=== PATIENT | female | born 1945 | race Two or more races ===

== ENCOUNTER 2017-06-02 14:43 | Emergency (ER) | payer OTHER ==
[2017-06-02 14:52] VITALS: BP 140/67; PULSE 74; TEMP 98.3; BMI 24.5
--- NOTE | 2017-06-02 16:47 | PDOC ---
History of Present Illness - General Chief Complaint: Injury Stated Complaint: SWELLING RT HAND Time Seen by Provider: 06/02/17 15:37 History Source: Patient Exam Limitations: No Limitations - History of Present Illness Initial Comments: 06/02/17 17:22 71 yr female with swelling and pain left middle finger after it got caught in minivan sliding door 2 days ago. Pt denies numbness or tingling. Severity: reports: mild Past History - Past Medical History Allergies/Adverse Reactions: Allergies Allergy/AdvReac Type Severity Reaction Status Date / Time No Known Allergies Allergy Verified 06/02/17 14:48 Home Medications: Ambulatory Orders Inhaler, Assist Devices [Asthma Control] 1 each MC BID #1 spacer 02/09/14 Amlodipine Besylate 5 mg PO ASDIR 06/02/17 Asthma: Yes HTN: Yes Thyroid Disease: Yes - Surgical History Cholecystectomy: Yes - Suicide/Smoking/Psychosocial Hx Smoking Status: No Smoking History: Never smoked Have you smoked in the past 12 months: No Number of Cigarettes Smoked Daily: 0 Information on smoking cessation initiated: No Hx Alcohol Use: No Drug/Substance Use Hx: No Substance Use Type: None Review of Systems - Review of Systems Able to Perform ROS?: Yes Is the patient limited Lao proficient: No Constitutional: No: Symptoms Reported HEENTM: No: Symptoms Reported Respiratory: No: Symptoms reported Cardiac (ROS): No: Symptoms Reported ABD/GI: No: Symptoms Reported Musculoskeletal: Yes: Symptoms Reported Integumentary: No: Symptoms Reported *Physical Exam - Vital Signs Last Vital Signs Temp Pulse Resp BP Pulse Ox 98.3 F 74 18 140/67 100 06/02/17 14:49 06/02/17 14:49 06/02/17 14:49 06/02/17 14:49 06/02/17 14:49 - Physical Exam Comments: 06/02/17 17:32 General Appearance: Yes: Nourished HEENT: positive: EOMI, JAMILA Respiratory/Chest: positive: Lungs Clear, Normal Breath Sounds Cardiovascular: positive: Regular Rhythm, Regular Rate Gastrointestinal/Abdominal: positive: Normal Bowel Sounds, Soft Musculoskeletal: positive: Normal Inspection Extremity: positive: Normal Capillary Refill, Swelling (over the dorsal aspect of the third digit at base of hand) Procedures - Splinting Splint Location: Left: Finger (middle digit left hand ) Pre-Proc Neuro Vasc Exam: normal Hand-Made Type: orthoglass Splint Type: Yes: Finger Vincenzo Bandage: yes ED Treatment Course - RADIOLOGY Radiology Studies Ordered: Category Date Time Status HAND- LEFT [RAD] Stat Radiology 06/02/17 15:42 Completed Medical Decision Making - Medical Decision Making 06/02/17 16:45 cc: finger injury crush 2 days ago in car door will xray to r/o fracture pt has FROM of the digits xray to r/o fracture 06/02/17 17:36 *DC/Admit/Observation/Transfer Diagnosis at time of Disposition: Fracture, finger Qualifiers: Encounter type: initial encounter Finger: middle finger Fracture type: closed Phalanx: proximal Fracture alignment: displaced Laterality: left Qualified Code( s): S62.613A - Displaced fracture of proximal phalanx of left middle finger, initial encounter for closed fracture - Discharge Dispostion Disposition: HOME Condition at time of disposition: Improved - Referrals Referrals: Trell Adam MD [Staff Physician] - - Patient Instructions Additional Instructions: call on Monday to make appointment for follow up you must follow with the orthopedist next week keep the slint on at all times do not remove or get wet take advil for pain 600mg every 6hrs return to ER for any worsening symptoms or pain - Post Discharge Activity
== END 2017-06-02 17:21 | disposition home or self-care (01) ==
LOC: JERFT 14:43
PROC: 2W3KX1Z Immobilization of Left Finger using Splint (ICD-10-PCS; principal; 2017-06-02)
DX: S62.613A Displaced fracture of proximal phalanx of left middle finger, initial encounter for closed fracture (principal); V58.4XXA Person boarding or alighting a pick-up truck or van injured in noncollision transport accident, initial encounter; Y92.488 Other paved roadways as the place of occurrence of the external cause; Y93.89 Activity, other specified; I10 Essential (primary) hypertension; J45.909 Unspecified asthma, uncomplicated; E07.9 Disorder of thyroid, unspecified
CPT/HCPCS: 73130-TC-LT; 99281-25

== ENCOUNTER 2017-06-12 16:09 | Emergency (ER) | payer OTHER ==
[2017-06-12 16:23] VITALS: BP 119/67; PULSE 60; TEMP 98.3; BMI 25.3
== END 2017-06-12 17:13 | disposition left against medical advice (07) ==
LOC: JERFT 16:09
DX: Z53.21 Procedure and treatment not carried out due to patient leaving prior to being seen by health care provider (principal)
CPT/HCPCS: 99281-25

== ENCOUNTER 2022-06-07 09:31 | Inpatient (IN) | payer OTHER ==
[2022-06-07] MEDS ORDERED: SODIUM CHLORIDE 1,987 ML IV ONE (11:31)
[2022-06-07] MEDS ORDERED: ACETAMINOPHEN 1000 MG/100 ML BAG IVPB ONE (11:35)
[2022-06-07] MEDS ORDERED: CEFTRIAXONE 1 GM in DEXTROSE 5%-WATER - 100 ML IVPB ONE (11:36)
[2022-06-07] MEDS ORDERED: CEFTRIAXONE 1 GM/50 ML BAG ONE (12:09)
[2022-06-07] MEDS ORDERED: ACETAMINOPHEN INJECTION 100 ML IVPB ONE (12:09)
[2022-06-07 12:25] LABS: BASO % 0.6 % (0-2.0); HEMATOCRIT 42.8 % (32.4-45.2); LYMPH % 10.3 % (8-40); MCH 27.9 pg (25.7-33.7); MCHC 32.7 g/dl (32.0-36.0); MEAN CELL VOLUME 85.3 fl (80-96); MEAN PLT VOLUME 7.2 fl (7.5-11.1); MONO % 7.8 % (3.8-10.2); NEUT % 81.3 % (42.8-82.8); PLATELET COUNT 241 10^3/uL (134-434); RBC 5.02 M/mm3 (3.60-5.2); VENOUS BASE EXCESS 0.4 mmol/L (-2-2); VENOUS O2 SATURATION 37.6 % (70-80); VENOUS PCO2 39.7 mmHg (38-52); VENOUS PH 7.415 (7.310-7.410); WHITE BLOOD COUNT 12.9 K/mm3 (4.0-10.0)
[2022-06-07 12:31] LABS: INR 1.34 (0.83-1.09); PROTHROMBIN TIME (PATIENT) 15.4 SEC (9.7-13.0)
[2022-06-07 12:34] LABS: ACTIVATED PTT 24.8 SECONDS (25.2-36.5)
[2022-06-07 12:45] LABS: ALBUMIN 3.5 g/dl (3.4-5.0); BLOOD UREA NITROGEN 17.2 mg/dL (7-18); CALCIUM 8.5 mg/dL (8.5-10.1)
[2022-06-07 12:50] LABS: TOT PROT 7.8 g/dl (6.4-8.2)
[2022-06-07 13:22] LABS: EPI CELLS 4 /uL (0-25.1); HYALINE CASTS 0 /uL (0-3.1); PH,URINE 7.5 (5.0-8.0); URINE APPEARANCE CLEAR; URINE BACTERIA 2 /uL (0-1359); URINE BILIRUBIN NEGATIVE (NEGATIVE); URINE COLOR YELLOW; URINE GLUCOSE (UA) NEGATIVE (NEGATIVE); URINE KETONE NEGATIVE (NEGATIVE); URINE LEUK ESTERASE NEGATIVE (NEGATIVE); URINE NITRITE NEGATIVE (NEGATIVE); URINE PROTEIN 1+ (NEGATIVE); URINE RBC 36 /uL (0-23.9); URINE UROBILINOGEN 0.2 mg/dL (0.2-1.0); URINE WBC 2 /uL (0-25.8)
[2022-06-07] MEDS ORDERED: AZITHROMYCIN IVPB 500 MG in DEXTROSE 5%-WATER - 250 ML IVPB SCH (14:45)
[2022-06-07] MEDS: SODIUM CHLORIDE 1,000 ML IV SCH (18:45)
[2022-06-07 19:41] VITALS: BMI 24.7
[2022-06-07 21:21] LABS: N-TERMINAL BNP 2061.98 pg/ml (5-450)
[2022-06-07] MEDS: ACETAMINOPHEN 1000 MG/100 ML BAG IVPB PRN (23:29)
[2022-06-08] MEDS: ACETAMINOPHEN 1000 MG/100 ML BAG IVPB PRN (09:16)
[2022-06-08] MEDS ORDERED: PANTOPRAZOLE 40 MG TABLET PO SCH (10:00)
[2022-06-08] MEDS ORDERED: ENOXAPARIN NA (PORCINE) 40 MG/0.4 ML DISP.SYRIN SQ SCH (10:00)
[2022-06-08] MEDS ORDERED: CEFTRIAXONE 1 GM in DEXTROSE 5%-WATER - 50 ML IVPB SCH (10:00)
[2022-06-08 10:04] LABS: BASO % 0.3 % (0-2.0); EOS % 0.2 % (0-4.5); HEMOGLOBIN 13.5 GM/dL (10.7-15.3); LYMPH % 11.3 % (8-40); MCH 28.7 pg (25.7-33.7); MCHC 33.7 g/dl (32.0-36.0); MEAN CELL VOLUME 85.1 fl (80-96); MEAN PLT VOLUME 7.1 fl (7.5-11.1); MONO % 4.5 % (3.8-10.2); NEUT % 83.7 % (42.8-82.8); PLATELET COUNT 201 10^3/uL (134-434); WHITE BLOOD COUNT 13.5 K/mm3 (4.0-10.0)
[2022-06-08 10:28] LABS: BLOOD UREA NITROGEN 15.9 mg/dL (7-18); CALCIUM 7.8 mg/dL (8.5-10.1); MAGNESIUM 1.8 mg/dL (1.8-2.4)
[2022-06-08] MEDS ORDERED: AZITHROMYCIN IVPB 500 MG/250 ML BAG IVPB SCH (10:30)
[2022-06-08 10:31] LABS: CREATININE 0.9 mg/dL (0.55-1.3); PHOSPHOROUS 2.2 mg/dL (2.5-4.9)
[2022-06-08 10:33] LABS: TOT PROT 6.8 g/dl (6.4-8.2)
[2022-06-08] MEDS ORDERED: POTASSIUM CHLORIDE ORAL LIQUID 20 MEQ/15 ML PO ONE (14:50)
[2022-06-08] MEDS: SODIUM CHLORIDE 1,000 ML IV SCH (15:33)
[2022-06-08] MEDS: KCL 10 MEQ IVPB 10 MEQ/100 ML INFUS.BAG IVPB SCH ×3 (15:33→20:20)
[2022-06-08] MEDS ORDERED: MAGNESIUM SULF 50% (8.12 MEQ/2 ML-1 GM VIAL) IVPB ONE (15:40)
[2022-06-08] MEDS: NAPH,MB-DB/K PH,MBDB POWDER PACKET PO SCH ×3 (16:08→21:12)
[2022-06-08] MEDS: ASPIRIN COATED 81 MG TABLET.EC PO SCH (18:53)
[2022-06-09] MEDS: NAPH,MB-DB/K PH,MBDB POWDER PACKET PO SCH ×3 (06:33→21:56)
[2022-06-09] MEDS: LEVOTHYROXINE NA 112 MCG TABLET (FP) PO SCH (06:33)
[2022-06-09 07:33] LABS: HEMATOCRIT 36.7 % (32.4-45.2); HEMOGLOBIN 12.4 GM/dL (10.7-15.3); MCH 28.5 pg (25.7-33.7); MCHC 33.8 g/dl (32.0-36.0); MEAN CELL VOLUME 84.5 fl (80-96); MEAN PLT VOLUME 7.1 fl (7.5-11.1); PLATELET COUNT 187 10^3/uL (134-434); RBC 4.34 M/mm3 (3.60-5.2); RDW 15.1 % (11.6-15.6); WHITE BLOOD COUNT 12.5 K/mm3 (4.0-10.0)
[2022-06-09 07:59] LABS: ALBUMIN 2.6 g/dl (3.4-5.0); BLOOD UREA NITROGEN 12.7 mg/dL (7-18); CALCIUM 7.8 mg/dL (8.5-10.1); MAGNESIUM 2.1 mg/dL (1.8-2.4)
[2022-06-09 08:02] LABS: CREATININE 0.6 mg/dL (0.55-1.3)
[2022-06-09 08:04] LABS: BILIRUBIN,TOTAL 0.8 mg/dL (0.2-1)
[2022-06-09 08:05] LABS: TOT PROT 6.2 g/dl (6.4-8.2)
[2022-06-09] MEDS: ASPIRIN COATED 81 MG TABLET.EC PO SCH (09:35)
[2022-06-09] MEDS: AZITHROMYCIN IVPB 500 MG/250 ML BAG IVPB SCH (09:35)
[2022-06-09] MEDS: PANTOPRAZOLE 40 MG TABLET PO SCH (09:35)
[2022-06-09] MEDS: CEFTRIAXONE 1 GM in DEXTROSE 5%-WATER - 50 ML IVPB SCH (09:36)
[2022-06-09] MEDS: ALBUTEROL SO4 2.5/IPRATROPIUM 0.5 INH SOL 3 ML VIAL.NEB. NEB SCH ×3 (11:30→20:11)
[2022-06-09] MEDS: methylPREDNISolone NA SUCC 40 MG/1 ML VIAL IVPUSH SCH ×2 (12:29→18:19)
[2022-06-09] MEDS: ENOXAPARIN NA (PORCINE) 40 MG/0.4 ML DISP.SYRIN SQ SCH (12:58)
[2022-06-10] MEDS: methylPREDNISolone NA SUCC 40 MG/1 ML VIAL IVPUSH SCH ×3 (01:15→18:14)
[2022-06-10] MEDS: LEVOTHYROXINE NA 112 MCG TABLET (FP) PO SCH (06:02)
[2022-06-10] MEDS: NAPH,MB-DB/K PH,MBDB POWDER PACKET PO SCH ×3 (06:03→21:59)
[2022-06-10] MEDS: ALBUTEROL SO4 2.5/IPRATROPIUM 0.5 INH SOL 3 ML VIAL.NEB. NEB SCH ×4 (07:51→21:00)
[2022-06-10 07:59] LABS: BASO % 0.3 % (0-2.0); HEMATOCRIT 38.9 % (32.4-45.2); HEMOGLOBIN 13.3 GM/dL (10.7-15.3); LYMPH % 10.3 % (8-40); MCH 28.8 pg (25.7-33.7); MCHC 34.1 g/dl (32.0-36.0); MEAN CELL VOLUME 84.3 fl (80-96); MEAN PLT VOLUME 7.2 fl (7.5-11.1); MONO % 3.8 % (3.8-10.2); NEUT % 85.6 % (42.8-82.8); PLATELET COUNT 242 10^3/uL (134-434); RBC 4.62 M/mm3 (3.60-5.2); RDW 14.9 % (11.6-15.6); WHITE BLOOD COUNT 10.2 K/mm3 (4.0-10.0)
[2022-06-10 08:39] LABS: ALBUMIN 2.8 g/dl (3.4-5.0); BLOOD UREA NITROGEN 18.1 mg/dL (7-18); MAGNESIUM 2.5 mg/dL (1.8-2.4)
[2022-06-10 08:42] LABS: CREATININE 0.6 mg/dL (0.55-1.3); PHOSPHOROUS 5.3 mg/dL (2.5-4.9)
[2022-06-10 08:44] LABS: BILIRUBIN,TOTAL 0.5 mg/dL (0.2-1); TOT PROT 6.9 g/dl (6.4-8.2)
[2022-06-10] MEDS: CEFTRIAXONE 1 GM in DEXTROSE 5%-WATER - 50 ML IVPB SCH (09:45)
[2022-06-10] MEDS: PANTOPRAZOLE 40 MG TABLET PO SCH (09:46)
[2022-06-10] MEDS: ENOXAPARIN NA (PORCINE) 40 MG/0.4 ML DISP.SYRIN SQ SCH (09:46)
[2022-06-10] MEDS: ASPIRIN COATED 81 MG TABLET.EC PO SCH (09:46)
[2022-06-10] MEDS: AZITHROMYCIN IVPB 500 MG/250 ML BAG IVPB SCH (09:47)
[2022-06-10] MEDS ORDERED: ACETAMINOPHEN 1000 MG/100 ML BAG IVPB PRN (15:16)
[2022-06-11] MEDS: methylPREDNISolone NA SUCC 40 MG/1 ML VIAL IVPUSH SCH ×3 (02:15→17:14)
[2022-06-11] MEDS: LEVOTHYROXINE NA 112 MCG TABLET (FP) PO SCH (06:33)
[2022-06-11] MEDS: NAPH,MB-DB/K PH,MBDB POWDER PACKET PO SCH ×2 (06:33→15:10)
[2022-06-11] MEDS: ALBUTEROL SO4 2.5/IPRATROPIUM 0.5 INH SOL 3 ML VIAL.NEB. NEB SCH ×4 (08:10→19:56)
[2022-06-11 08:36] LABS: HEMATOCRIT 38.1 % (32.4-45.2); HEMOGLOBIN 12.5 GM/dL (10.7-15.3); MCH 27.7 pg (25.7-33.7); MCHC 32.7 g/dl (32.0-36.0); MEAN CELL VOLUME 84.5 fl (80-96); MEAN PLT VOLUME 7.3 fl (7.5-11.1); PLATELET COUNT 313 10^3/uL (134-434); RDW 15.1 % (11.6-15.6); WHITE BLOOD COUNT 15.4 K/mm3 (4.0-10.0)
[2022-06-11 08:45] LABS: CALCIUM 7.9 mg/dL (8.5-10.1)
[2022-06-11 08:46] LABS: ALBUMIN 2.8 g/dl (3.4-5.0); BLOOD UREA NITROGEN 22.6 mg/dL (7-18)
[2022-06-11 08:47] LABS: CREATININE 0.8 mg/dL (0.55-1.3)
[2022-06-11 08:49] LABS: BILIRUBIN,TOTAL 0.4 mg/dL (0.2-1); TOT PROT 6.7 g/dl (6.4-8.2)
[2022-06-11 09:56] LABS: ANISOCYTOSIS 0; MACROCYTOSIS 0; PLATELET ESTIMATE NORMAL
[2022-06-11] MEDS: PANTOPRAZOLE 40 MG TABLET PO SCH (10:08)
[2022-06-11] MEDS: ASPIRIN COATED 81 MG TABLET.EC PO SCH (10:09)
[2022-06-11] MEDS: CEFTRIAXONE 1 GM in DEXTROSE 5%-WATER - 50 ML IVPB SCH (10:09)
[2022-06-11] MEDS: ENOXAPARIN NA (PORCINE) 40 MG/0.4 ML DISP.SYRIN SQ SCH (10:09)
[2022-06-11] MEDS: AZITHROMYCIN IVPB 500 MG/250 ML BAG IVPB SCH (11:17)
[2022-06-12] MEDS: methylPREDNISolone NA SUCC 40 MG/1 ML VIAL IVPUSH SCH ×3 (01:18→17:04)
[2022-06-12] MEDS: LEVOTHYROXINE NA 112 MCG TABLET (FP) PO SCH (06:03)
[2022-06-12 07:20] LABS: BASO % 0.5 % (0-2.0); HEMATOCRIT 38.4 % (32.4-45.2); HEMOGLOBIN 12.5 GM/dL (10.7-15.3); LYMPH % 10.6 % (8-40); MCH 27.5 pg (25.7-33.7); MCHC 32.5 g/dl (32.0-36.0); MEAN CELL VOLUME 84.4 fl (80-96); MEAN PLT VOLUME 7.2 fl (7.5-11.1); MONO % 6.1 % (3.8-10.2); NEUT % 82.8 % (42.8-82.8); PLATELET COUNT 326 10^3/uL (134-434); RBC 4.54 M/mm3 (3.60-5.2); WHITE BLOOD COUNT 13.5 K/mm3 (4.0-10.0)
[2022-06-12 07:44] LABS: CALCIUM 7.5 mg/dL (8.5-10.1)
[2022-06-12 07:45] LABS: ALBUMIN 2.5 g/dl (3.4-5.0); BLOOD UREA NITROGEN 29.8 mg/dL (7-18)
[2022-06-12 07:48] LABS: CREATININE 0.7 mg/dL (0.55-1.3); PHOSPHOROUS 3.7 mg/dL (2.5-4.9)
[2022-06-12 07:49] LABS: BILIRUBIN,TOTAL 0.4 mg/dL (0.2-1)
[2022-06-12] MEDS: ALBUTEROL SO4 2.5/IPRATROPIUM 0.5 INH SOL 3 ML VIAL.NEB. NEB SCH ×4 (08:51→20:42)
[2022-06-12] MEDS: CEFTRIAXONE 1 GM in DEXTROSE 5%-WATER - 50 ML IVPB SCH (09:01)
[2022-06-12] MEDS: AZITHROMYCIN IVPB 500 MG/250 ML BAG IVPB SCH (09:04)
[2022-06-12] MEDS: PANTOPRAZOLE 40 MG TABLET PO SCH (09:13)
[2022-06-12] MEDS: ASPIRIN COATED 81 MG TABLET.EC PO SCH (09:13)
[2022-06-12] MEDS: ENOXAPARIN NA (PORCINE) 40 MG/0.4 ML DISP.SYRIN SQ SCH (09:13)
[2022-06-12 09:14] LABS: ANISOCYTOSIS 1+; MACROCYTOSIS 0
[2022-06-13] MEDS: methylPREDNISolone NA SUCC 40 MG/1 ML VIAL IVPUSH SCH ×3 (03:08→17:42)
[2022-06-13] MEDS: LEVOTHYROXINE NA 112 MCG TABLET (FP) PO SCH (06:41)
[2022-06-13 07:36] LABS: HEMATOCRIT 38.6 % (32.4-45.2); HEMOGLOBIN 12.7 GM/dL (10.7-15.3); MCH 27.9 pg (25.7-33.7); MEAN CELL VOLUME 84.5 fl (80-96); PLATELET COUNT 337 10^3/uL (134-434); RBC 4.56 M/mm3 (3.60-5.2); RDW 15.3 % (11.6-15.6); WHITE BLOOD COUNT 15.1 K/mm3 (4.0-10.0)
[2022-06-13 08:03] LABS: ALBUMIN 2.5 g/dl (3.4-5.0); BLOOD UREA NITROGEN 29.2 mg/dL (7-18); CALCIUM 7.4 mg/dL (8.5-10.1)
[2022-06-13 08:06] LABS: CREATININE 0.7 mg/dL (0.55-1.3)
[2022-06-13 08:08] LABS: BILIRUBIN,TOTAL 0.4 mg/dL (0.2-1); TOT PROT 5.8 g/dl (6.4-8.2)
[2022-06-13 09:06] LABS: ANISOCYTOSIS 0; HELMET CELLS 0; HOWELL-JOLLY BODIES 0; MACROCYTOSIS 0; OVALOCYTE 0; ROULEAU 0; SICKELED CELLS 0; TARGET CELLS 0; TEAR DROP CELLS 0; TOXIC GRANULATION 0
[2022-06-13] MEDS: CEFTRIAXONE 1 GM in DEXTROSE 5%-WATER - 50 ML IVPB SCH (09:34)
[2022-06-13] MEDS: AZITHROMYCIN IVPB 500 MG/250 ML BAG IVPB SCH (09:34)
[2022-06-13] MEDS: ASPIRIN COATED 81 MG TABLET.EC PO SCH (09:35)
[2022-06-13] MEDS: ENOXAPARIN NA (PORCINE) 40 MG/0.4 ML DISP.SYRIN SQ SCH (09:35)
[2022-06-13] MEDS: ALBUTEROL SO4 2.5/IPRATROPIUM 0.5 INH SOL 3 ML VIAL.NEB. NEB SCH ×4 (09:35→20:33)
[2022-06-13] MEDS: PANTOPRAZOLE 40 MG TABLET PO SCH (09:35)
[2022-06-13] MEDS ORDERED: REGADENOSON 0.4 MG/5 ML PRE-FILLED SYRINGE IVPUSH ONE ×2 (09:54→10:30)
[2022-06-13 18:29] VITALS: RESP 18
[2022-06-14] MEDS: methylPREDNISolone NA SUCC 40 MG/1 ML VIAL IVPUSH SCH ×2 (02:49→10:45)
[2022-06-14] MEDS: LEVOTHYROXINE NA 112 MCG TABLET (FP) PO SCH (06:03)
[2022-06-14 07:29] LABS: HEMATOCRIT 38.1 % (32.4-45.2); HEMOGLOBIN 12.8 GM/dL (10.7-15.3); MCH 28.4 pg (25.7-33.7); MCHC 33.5 g/dl (32.0-36.0); MEAN CELL VOLUME 84.9 fl (80-96); MEAN PLT VOLUME 6.6 fl (7.5-11.1); PLATELET COUNT 382 10^3/uL (134-434); RBC 4.49 M/mm3 (3.60-5.2); RDW 15.4 % (11.6-15.6); WHITE BLOOD COUNT 14.9 K/mm3 (4.0-10.0)
[2022-06-14 07:49] LABS: ALBUMIN 2.6 g/dl (3.4-5.0)
[2022-06-14 07:50] LABS: CALCIUM 7.6 mg/dL (8.5-10.1)
[2022-06-14 07:51] LABS: BLOOD UREA NITROGEN 25.2 mg/dL (7-18); MAGNESIUM 2.3 mg/dL (1.8-2.4)
[2022-06-14 07:54] LABS: CREATININE 0.6 mg/dL (0.55-1.3); PHOSPHOROUS 3.7 mg/dL (2.5-4.9)
[2022-06-14 07:56] LABS: BILIRUBIN,TOTAL 0.3 mg/dL (0.2-1); TOT PROT 5.6 g/dl (6.4-8.2)
[2022-06-14] MEDS: ALBUTEROL SO4 2.5/IPRATROPIUM 0.5 INH SOL 3 ML VIAL.NEB. NEB SCH (07:59)
[2022-06-14] MEDS: CEFTRIAXONE 1 GM in DEXTROSE 5%-WATER - 50 ML IVPB SCH (10:43)
[2022-06-14] MEDS: ASPIRIN COATED 81 MG TABLET.EC PO SCH (10:45)
[2022-06-14] MEDS: ENOXAPARIN NA (PORCINE) 40 MG/0.4 ML DISP.SYRIN SQ SCH (10:45)
[2022-06-14] MEDS: PANTOPRAZOLE 40 MG TABLET PO SCH (10:45)
[2022-06-14] MEDS: AZITHROMYCIN IVPB 500 MG/250 ML BAG IVPB SCH (10:57)
[2022-06-14] MEDS ORDERED: methylPREDNISolone NA SUCC 40 MG/1 ML VIAL IVPUSH SCH (11:45)
[2022-06-14 14:58] VITALS: BP 135/76; PULSE 55; TEMP 97.6
[2022-06-14] MEDS ORDERED: CEFUROXIME AXETIL 500 MG TABLET PO SCH (22:00)
== END 2022-06-14 19:01 | disposition home or self-care (01) | DRG 871 ==
LOC: JER 09:31 → JERBED 15:25 → J6S 18:25 → J4W 06-08 15:05
PROVIDERS: ADMIT Internal Medicine; ATTEND Internal Medicine
DX: A41.9 Sepsis, unspecified organism (principal); J18.9 Pneumonia, unspecified organism; I24.8 Other forms of acute ischemic heart disease; I10 Essential (primary) hypertension; E05.90 Thyrotoxicosis, unspecified without thyrotoxic crisis or storm; J45.909 Unspecified asthma, uncomplicated; E03.9 Hypothyroidism, unspecified; K21.9 Gastro-esophageal reflux disease without esophagitis; E78.5 Hyperlipidemia, unspecified; J84.10 Pulmonary fibrosis, unspecified; R06.09 Other forms of dyspnea; D72.829 Elevated white blood cell count, unspecified; M48.00 Spinal stenosis, site unspecified; I27.20 Pulmonary hypertension, unspecified; F32.A Depression, unspecified; J20.9 Acute bronchitis, unspecified
CPT/HCPCS: 0241U-QW; 36415; 70450-TC; 71046-TC-FY; 71250-TC; 72125-TC; 72148-TC; 72170-TC-FY; 72220-TC-FY; 73521-TC-FY; 78452-TC; 80053; 80061; 81003; 82550; 82553; 82803; 83605; 83735; 83880; 84100; 84439; 84443; 84484; 85025; 85027; 85610; 85730; 86850; 86900; 86901; 87040; 87070; 87077; 87086; 87205; 87899; 93005; 93010; 93017; 93306-TC; 94640; 97116-GP; 97162-GP; 99285-25; A9502; J2785

== ENCOUNTER 2022-10-25 17:02 | Observation (INO) | payer OTHER ==
[2022-10-25] MEDS ORDERED: methylPREDNISolone NA SUCC 125 MG/2 ML VIAL IVPUSH ONE (18:00)
[2022-10-25] MEDS ORDERED: methylPREDNISolone NA SUCC 125 MG/2 ML VIAL ONE (18:07)
[2022-10-25] MEDS ORDERED: ALBUTEROL SO4 2.5/IPRATROPIUM 0.5 INH SOL 3 ML VIAL.NEB. NEB ONE (18:07)
[2022-10-25] MEDS: ALBUTEROL SO4 2.5/IPRATROPIUM 0.5 INH SOL 3 ML VIAL.NEB. NEB SCH ×3 (18:15→18:57)
[2022-10-25 19:24] LABS: ALBUMIN 3.9 g/dl (3.4-5.0); BLOOD UREA NITROGEN 15.1 mg/dL (7-18); CALCIUM 8.7 mg/dL (8.5-10.1)
[2022-10-25 19:27] LABS: CREATININE 0.9 mg/dL (0.55-1.3)
[2022-10-25 19:28] LABS: BILIRUBIN,TOTAL 0.7 mg/dL (0.2-1); TOT PROT 8.2 g/dl (6.4-8.2)
[2022-10-25 19:31] LABS: N-TERMINAL BNP 127.7 pg/ml (5-450)
[2022-10-25 21:06] LABS: BASO % 0.7 % (0-2.0); EOS % 0.8 % (0-4.5); HEMATOCRIT 40.8 % (32.4-45.2); HEMOGLOBIN 13.5 GM/dL (10.7-15.3); LYMPH % 19.1 % (8-40); MCH 28.1 pg (25.7-33.7); MEAN PLT VOLUME 6.3 fl (7.5-11.1); MONO % 2.5 % (3.8-10.2); NEUT % 76.9 % (42.8-82.8); PLATELET COUNT 285 10^3/uL (134-434); RBC 4.79 M/mm3 (3.60-5.2); RDW 14.7 % (11.6-15.6); WHITE BLOOD COUNT 11.5 K/mm3 (4.0-10.0)
[2022-10-25] MEDS ORDERED: DOCUSATE SODIUM 100 MG CAPSULE (FP) PO PRN (23:49)
[2022-10-25] MEDS ORDERED: ACETAMINOPHEN 325 MG TABLET (FP) PO PRN (23:49)
[2022-10-26] MEDS ORDERED: ALBUTEROL SO4 HFA INHALER IH PRN (00:08)
[2022-10-26] MEDS ORDERED: methylPREDNISolone NA SUCC 40 MG/1 ML VIAL ONE ×2 (03:20→09:50)
[2022-10-26] MEDS: methylPREDNISolone NA SUCC 40 MG/1 ML VIAL IVPUSH SCH ×3 (03:28→17:51)
[2022-10-26 06:41] LABS: BASO % 0.3 % (0-2.0); HEMATOCRIT 39.8 % (32.4-45.2); HEMOGLOBIN 13.4 GM/dL (10.7-15.3); LYMPH % 14.4 % (8-40); MCH 29.1 pg (25.7-33.7); MCHC 33.6 g/dl (32.0-36.0); MEAN CELL VOLUME 86.6 fl (80-96); MEAN PLT VOLUME 6.7 fl (7.5-11.1); MONO % 1.2 % (3.8-10.2); NEUT % 84.1 % (42.8-82.8); PLATELET COUNT 291 10^3/uL (134-434); RDW 14.5 % (11.6-15.6); WHITE BLOOD COUNT 6.9 K/mm3 (4.0-10.0)
[2022-10-26 06:59] LABS: CALCIUM 8.7 mg/dL (8.5-10.1); MAGNESIUM 1.9 mg/dL (1.8-2.4)
[2022-10-26 07:01] LABS: BLOOD UREA NITROGEN 18.9 mg/dL (7-18)
[2022-10-26 07:03] LABS: PHOSPHOROUS 3.3 mg/dL (2.5-4.9)
[2022-10-26] MEDS: LEVOTHYROXINE NA 112 MCG TABLET (FP) PO SCH (09:10)
[2022-10-26] MEDS ORDERED: amLODIPine BESYLATE 5 MG TABLET (FP) ONE (09:49)
[2022-10-26] MEDS ORDERED: PANTOPRAZOLE 40 MG TABLET PO ONE (09:49)
[2022-10-26] MEDS ORDERED: LOSARTAN POTASSIUM 50 MG TABLET ONE (09:49)
[2022-10-26] MEDS ORDERED: ALBUTEROL SO4 HFA INHALER IH ONE (09:50)
[2022-10-26] MEDS: LOSARTAN POTASSIUM 50 MG TABLET PO SCH (10:00)
[2022-10-26] MEDS: PANTOPRAZOLE 40 MG TABLET PO SCH (10:00)
[2022-10-26] MEDS: amLODIPine BESYLATE 5 MG TABLET (FP) PO SCH (10:00)
[2022-10-26] MEDS ORDERED: ALBUTEROL SO4 0.042% IH SOL 1.25 MG/3 ML VIAL.NEB NEB ONE (17:12)
[2022-10-26] MEDS: ALBUTEROL SO4 0.042% IH SOL 1.25 MG/3 ML VIAL.NEB NEB SCH ×2 (17:15→20:25)
[2022-10-26 18:10] VITALS: BMI 25.9
[2022-10-26] MEDS: BUDESONIDE/FORMETEROL FUMARATE 160/4.5 mcg INHALER IH SCH (23:50)
[2022-10-27] MEDS: methylPREDNISolone NA SUCC 40 MG/1 ML VIAL IVPUSH SCH ×3 (01:47→17:36)
[2022-10-27] MEDS: LEVOTHYROXINE NA 112 MCG TABLET (FP) PO SCH (07:06)
[2022-10-27] MEDS: ALBUTEROL SO4 0.042% IH SOL 1.25 MG/3 ML VIAL.NEB NEB SCH ×4 (07:37→20:27)
[2022-10-27] MEDS: PANTOPRAZOLE 40 MG TABLET PO SCH (11:08)
[2022-10-27] MEDS: LOSARTAN POTASSIUM 50 MG TABLET PO SCH (11:08)
[2022-10-27] MEDS: amLODIPine BESYLATE 5 MG TABLET (FP) PO SCH (11:08)
[2022-10-27] MEDS: BUDESONIDE/FORMETEROL FUMARATE 160/4.5 mcg INHALER IH SCH ×2 (11:09→21:50)
[2022-10-28] MEDS: methylPREDNISolone NA SUCC 40 MG/1 ML VIAL IVPUSH SCH ×3 (02:06→10:59)
[2022-10-28] MEDS: LEVOTHYROXINE NA 112 MCG TABLET (FP) PO SCH (06:55)
[2022-10-28] MEDS: ALBUTEROL SO4 0.042% IH SOL 1.25 MG/3 ML VIAL.NEB NEB SCH ×3 (07:25→15:31)
[2022-10-28] MEDS: PANTOPRAZOLE 40 MG TABLET PO SCH (10:54)
[2022-10-28] MEDS: LOSARTAN POTASSIUM 50 MG TABLET PO SCH (10:54)
[2022-10-28] MEDS: BUDESONIDE/FORMETEROL FUMARATE 160/4.5 mcg INHALER IH SCH (10:55)
[2022-10-28] MEDS: amLODIPine BESYLATE 5 MG TABLET (FP) PO SCH (10:55)
[2022-10-28 14:24] VITALS: BP 116/65; PULSE 60; RESP 20; TEMP 98.1
== END 2022-10-28 16:30 | disposition home or self-care (01) ==
LOC: JER 17:02 → JERBED 21:24 → J7W 10-26 17:32
PROVIDERS: ADMIT Internal Medicine
PROC: 3E0F7GC Introduction of Other Therapeutic Substance into Respiratory Tract, Via Natural or Artificial Opening (ICD-10-PCS; principal; 2022-10-25)
PROC: 3E033GC Introduction of Other Therapeutic Substance into Peripheral Vein, Percutaneous Approach (ICD-10-PCS; 2022-10-25)
DX: J84.10 Pulmonary fibrosis, unspecified (principal); I10 Essential (primary) hypertension; E78.5 Hyperlipidemia, unspecified; K21.9 Gastro-esophageal reflux disease without esophagitis; E03.9 Hypothyroidism, unspecified; R06.02 Shortness of breath
CPT/HCPCS: 0241U-QW; 36415; 71046-TC-FY; 80048; 80053; 83735; 83880; 84100; 84443; 84484; 85025; 93005; 93010; 94640; 96372; 99285-25; G0378